=== PATIENT | male | born 1985 | race Caucasian/White ===

== ENCOUNTER 2023-12-06 00:37 | Emergency (ER) | payer MEDICAID, SELFPAY ==
[2023-12-06 00:38] VITALS: BP 181/94; PULSE 103; RESP 16; TEMP 36.1; O2SAT 99; BMI 38.0
--- NOTE | 2023-12-06 01:11 | EDS_ITS ---
HPI History of Present Illness Chief Complaint: Rash Narrative Narrative: 38-year-old male who denies significant past medical history presents with 3 days of itchy rash on his neck and shoulders. He denies any new soaps or lotions, no new detergents. No fevers or chills. He states he noticed it starting on his neck and shoulders, and there are areas that are raised. He thought maybe they were pimples at first, but he states they began to itch more and more. No exacerbating or alleviating symptoms. No recent hot tub use or swimming. PFSH PFSH Home Medications ?Medication ?Instructions ?Recorded ?Last Taken ?Type cephalexin 500 mg capsule 500 mg PO Q6 ##40 02/26/17 Unknown Rx oxycodone-acetaminophen 5 mg-325 1 - 2 tab PO Q4H PRN PRN Pain #12 02/26/17 Unknown Rx mg tablet tabs doxycycline hyclate 100 mg capsule 100 mg PO BID #14 caps 12/06/23 Unknown Rx Allergy/AdvReac Type Severity Reaction Status Date / Time hydrocodone bitartrate (From Allergy Swelling Verified 12/06/23 00:43 [facility]) Social History Smoking Status: Current every day smoker tobacco type: cigarettes ROS ROS ED ROS Narrative Constitutional: No fever, no chills. HEENT: No sore throat. No neck pain. No loss of vision. No rhinorrhea. Cardiovascular: No chest pain. No palpitations. No pedal edema. Respiratory: No cough, no shortness of breath. Abdominal: No abdominal pain. No nausea. No vomiting. Musculoskeletal: No myalgias. No arthralgias. Neurologic: No headaches. No dizziness. No lightheadedness. Skin: Positive pustular rash, itchy on neck and shoulders. No change in color. Psychiatric: No depression. No anxiety. EXAM Physical Exam Narrative Exam Narrative: Afebrile. Vital signs noted. Nontoxic-appearing. Regular rate and rhythm with intermittent tachycardia. Lungs clear to auscultation bilaterally. Abdomen soft nontender with normal active bowel sounds. Neurological examination nonfocal and nonlateralizing. Positive pustular rash on shoulders and neck consistent with folliculitis. Const Vital Signs: 12/06/23 00:38 Temperature 96.9 F L Temperature Source Oral Pulse Rate 103 H Respiratory Rate 16 Blood Pressure 181/94 H Blood Pressure Mean 123 Pulse Ox 99 Oxygen Delivery Method Room Air MDM MDM MDM Narrative Medical decision making narrative: Differential diagnosis includes folliculitis versus dermatitis. Patient states that he talked to a friend and they told him that he needed steroids and antibiotics. As I think this is more folliculitis based on his physical examination, I do feel he would benefit more from antibiotics than steroids. He was given his first dose of doxycycline here and prescription written to take for the next week and he was referred to primary care. It was noted that he had elevated blood pressure but he is asymptomatic with it. He was told to keep an eye on his blood pressure as well and follow-up with primary care. Return instructions to the emergency department were reviewed. Disposition is disc harged home in stable condition. History & Record Review Discussion w/independent historian: Patient Discharge Plan Triage Chief Complaint: Rash ED Provider: Lv Olguin Dx/Rx/DC Orders Clinical Impression: Folliculitis Instructions: ED Folliculitis Prescriptions: New doxycycline hyclate 100 mg capsule 100 mg PO BID Qty: 14 0RF No Action cephalexin 500 MG capsule 500 mg PO Q6 Qty: 40 0RF oxycodone-acetaminophen 1 TABLET tablet 1 - 2 tab PO Q4H PRN PRN (Reason: Pain) Qty: 12 0RF Primary Care Provider: NOT,DEFINED Referrals: Sabino Pires MD [Med Staff - Active Staff] - 1 Week if not improving NOT,DEFINED [Primary Care Provider] - Activity Restrictions/Additional Instructions: Take all your antibiotics as directed. Print Language: German Disposition Disposition: Home, Self Care
[2023-12-06] MEDS: Doxycycline 100 MG CAPSULE PO (01:29)
[2023-12-06 01:30] VITALS: BP 186/103; PULSE 99; RESP 18; TEMP 36.6; O2SAT 99
== END 2023-12-06 01:36 | disposition home or self-care (01) ==
LOC: ED 01:26
PROVIDERS: Emergency Provider Emergency Medicine; Visit Provider Emergency Medicine
DX: L73.9 Follicular disorder, unspecified (principal); F17.210 Nicotine dependence, cigarettes, uncomplicated
CPT/HCPCS: 99282